=== PATIENT | male | born 1975 | race Hispanic/Latino ===

== ENCOUNTER 2017-04-26 10:20 | Emergency (ER) | payer OTHER ==
[~2017-04-26] VITALS: Ht 154.9 cm; Wt 70.0 kg
[~2017-04-26 10:20] MED LIST: CIPRO500 MG PO; CIPROFLOXACN500 MG PO; NEXIUM40 M1 OR; OMEPRAZOLE20 M1 PO; TRIAM/NYSTAT TOP
[2017-04-26 11:33] VITALS: BP 118/66
== END 2017-04-26 11:33 | disposition home or self-care (01) | DRG 951 ==
LOC: ED 10:20
DX: Z20.811 Contact with and (suspected) exposure to meningococcus (principal)

== ENCOUNTER → 2018-11-04 | Outpatient (REF) ==
[2018-11-04 08:38] LABS: CHOLESTEROL HDL RATIO 4.2 (<4.4 (CALC))
== END | disposition home or self-care (01) | DRG 951 ==
LOC: LAB 06:35
PROVIDERS: ATTEND Family Medicine
DX: Z02.6 Encounter for examination for insurance purposes (principal)

== ENCOUNTER → 2018-11-16 | Outpatient (REF) | payer OTHER ==
[2018-11-16 09:25] LABS: SGOT/AST 38 u/l (17-59)
== END | disposition home or self-care (01) | DRG 179 ==
LOC: ULTRASND 07:30
PROVIDERS: ATTEND Family Medicine
DX: R76.11 Nonspecific reaction to tuberculin skin test without active tuberculosis (principal); R94.5 Abnormal results of liver function studies